=== PATIENT | female | born 1995 | race Caucasian/White ===

== ENCOUNTER 2023-10-26 20:55 | Emergency (ER) | payer SELFPAY ==
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
[2023-10-26 21:07] VITALS: BP 155/121; PULSE 102; RESP 18; TEMP 36.7; O2SAT 95; BMI 46.2
[2023-10-26] MEDS: naproxen 500 mg Tablet PO (21:08)
== END 2023-10-26 21:28 | disposition home or self-care (01) ==
LOC: ER 21:09
PROVIDERS: Emergency Provider Emergency Medicine
DX: S16.1XXA Strain of muscle, fascia and tendon at neck level, initial encounter (principal); V89.2XXA Person injured in unspecified motor-vehicle accident, traffic, initial encounter
CPT/HCPCS: 99283